=== PATIENT | female | born 1970 | race Caucasian/White ===

== ENCOUNTER 2016-12-31 15:46 | Emergency (ER) | payer OTHER ==
[2016-12-31] MEDS ORDERED: COZAAR50 M1 PO (16:03)
[2016-12-31] MEDS ORDERED: NORCO 5-325 TA1 EACH PO (17:20)
== END 2016-12-31 18:06 ==
LOC: EDMED 15:46
DX: S83.92XA Sprain of unspecified site of left knee, initial encounter (principal); Z90.710 Acquired absence of both cervix and uterus; W01.0XXA Fall on same level from slipping, tripping and stumbling without subsequent striking against object, initial encounter